=== PATIENT | female | born 1990 | race Caucasian/White ===

== ENCOUNTER 2018-08-18 21:49 | Emergency (ER) | payer OTHER ==
[2018-08-18 22:06] VITALS: BP 137/93; PULSE 77; TEMP 98; BMI 37.5
--- NOTE | 2018-08-18 22:45 | PDOC ---
History of Present Illness <Hollie Mishrareen - Last Filed: 08/18/18 23:53> - General History Source: Patient Exam Limitations: No Limitations - History of Present Illness Initial Comments: 08/18/18 23:55 The patient is a 28 year old female with no significant PMH presenting with nonproductive cough and sore throat since last night. Patient also reports a mild fever last night but none today. Patient is eating and drinking normally at home. Patient had her flu shot this year. Patient admits to positive sick contact. The patient denies chest pain, shortness of breath, headache and dizziness. Denies fever, chills, nausea, vomit, diarrhea and constipation. Denies dysuria, frequency, urgency and hematuria. Allergies: NKA Past surgical history: None reported. Social history: No reported alcohol, drug or cigarette use. Smokes hookah. <Martha Valera - Last Filed: 08/18/18 23:56> - General Chief Complaint: Cold Symptoms Stated Complaint: SORE THROAT, COUGHING, FEVER Time Seen by Provider: 08/18/18 22:45 Past History - Past Medical History COPD: No - Suicide/Smoking/Psychosocial Hx Smoking History: Never smoked Have you smoked in the past 12 months: No Information on smoking cessation initiated: No Hx Alcohol Use: No Drug/Substance Use Hx: No <Hollie Mishrareen - Last Filed: 08/18/18 23:53> <Martha Valera - Last Filed: 08/18/18 23:56> - Past Medical History Allergies/Adverse Reactions: Allergies Allergy/AdvReac Type Severity Reaction Status Date / Time No Known Allergies Allergy Verified 08/18/18 22:06 Review of Systems - Review of Systems Comments:: 08/18/18 23:55 ADULT ROS GENERAL/CONSTITUTIONAL: No fever or chills. No weakness. HEAD, EYES, EARS, NOSE AND THROAT: No change in vision. No ear pain or discharge. (+) sore throat. CARDIOVASCULAR: No chest pain or shortness of breath. RESPIRATORY: No wheezing, or hemoptysis. (+) cough. GASTROINTESTINAL: No nausea, vomiting, diarrhea or constipation. GENITOURINARY: No dysuria, frequency, or change in urination. MUSCULOSKELETAL: No joint or muscle swelling or pain. No neck or back pain. SKIN: No rash NEUROLOGIC: No headache, vertigo, loss of consciousness, or change in strength/ sensation. ENDOCRINE: No increased thirst. No abnormal weight change. HEMATOLOGIC/LYMPHATIC: No anemia, easy bleeding, or history of blood clots. ALLERGIC/IMMUNOLOGIC: No hives or skin allergy. <Martha Valera - Last Filed: 08/18/18 23:56> *Physical Exam - Vital Signs Last Vital Signs Temp Pulse Resp BP Pulse Ox 98.0 F 77 16 137/93 100 08/18/18 22:04 08/18/18 22:04 08/18/18 22:04 08/18/18 22:04 08/18/18 22:04 <Annia Mishra - Last Filed: 08/18/18 23:53> - Vital Signs Last Vital Signs Temp Pulse Resp BP Pulse Ox 98.0 F 77 18 137/93 100 08/18/18 22:45 08/18/18 22:45 08/18/18 22:45 08/18/18 22:45 08/18/18 22:45 - Physical Exam Comments: 08/18/18 23:56 ADULT EXAM GENERAL: Awake, alert, and fully oriented, in no acute distress HEAD: No signs of trauma EYES: PERRLA, EOMI, sclera anicteric, conjunctiva clear ENT: Auricles normal inspection, hearing grossly normal, nares patent, oropharynx clear without exudates. Moist mucosa NECK: Normal ROM, supple, no lymphadenopathy, JVD, or masses LUNGS: Breath sounds equal, clear to auscultation bilaterally. No wheezes, and no crackles HEART: Regular rate and rhythm, normal S1 and S2, no murmurs, rubs or gallops ABDOMEN: Soft, nontender, normoactive bowel sounds. No guarding, no rebound. No masses EXTREMITIES: Normal range of motion, no edema. No clubbing or cyanosis. No cords, erythema, or tenderness NEUROLOGICAL: Cranial nerves II through XII grossly intact. Normal speech, normal gait SKIN: Warm, Dry, normal turgor, no rashes or lesions noted. <Martha Valera - Last Filed: 08/18/18 23:56> Moderate Sedation - Procedure Monitoring Vital Signs: Procedure Monitoring Vital Signs Temperature 98.0 F 08/18/18 22:04 Pulse Rate 77 08/18/18 22:04 Respiratory Rate 16 01/05/19 22:04 Blood Pressure 137/93 08/18/18 22:04 O2 Sat by Pulse Oximetry (%) 100 08/18/18 22:04 <Annia Mishra - Last Filed: 08/18/18 23:53> - Procedure Monitoring Vital Signs: Procedure Monitoring Vital Signs Temperature 98.0 F 08/18/18 22:45 Pulse Rate 77 08/18/18 22:45 Respiratory Rate 18 08/18/18 22:45 Blood Pressure 137/93 08/18/18 22:45 O2 Sat by Pulse Oximetry (%) 100 08/18/18 22:45 <Martha Valera - Last Filed: 08/18/18 23:56> *DC/Admit/Observation/Transfer - Discharge Dispostion Decision to Admit order: No <Annia Mishra - Last Filed: 08/18/18 23:53> - Attestations Scribe Attestion: 08/18/18 23:56 Documentation prepared by Martha Valera, acting as medical records director for Annia Mishra MD. <Martha Valera - Last Filed: 08/18/18 23:56> Diagnosis at time of Disposition: Viral upper respiratory tract infection - Discharge Dispostion Disposition: HOME Condition at time of disposition: Stable - Referrals Referrals: ON STAFF,NOT [Primary Care Provider] - - Patient Instructions Printed Discharge Instructions: DI for Viral Upper Respiratory Infection -- Adult - Post Discharge Activity
[2018-08-18] MEDS ORDERED: IBUPROFEN 600 MG TABLET (FP) PO ONE ×2 (23:54→23:56)
== END 2018-08-19 00:22 | disposition home or self-care (01) ==
LOC: JER 21:49 → JERFT 21:49 → JER 08-19 00:22
DX: J06.9 Acute upper respiratory infection, unspecified (principal); B97.89 Other viral agents as the cause of diseases classified elsewhere
CPT/HCPCS: 99282-25